=== PATIENT | male | born 1940 | race Caucasian/White ===

== ENCOUNTER 2016-11-25 11:05 | Outpatient (CLI) | payer OTHER | END 2016-11-25 17:28 | disposition home or self-care (01) | LOC: SMI 11:05 → EEVIPCON 11:05 → SMI 17:28 | PROVIDERS: ATTEND Psychiatry & Neurology Neurology | DX: M47.892 Other spondylosis, cervical region (principal); R53.1 Weakness; Z91.81 History of falling | CPT/HCPCS: 72141 ==